=== PATIENT | male | born 1975 | race Two or more races ===

== ENCOUNTER 2018-06-29 17:40 | Emergency (ER) | payer OTHER ==
[~2018-06-29] VITALS: Ht 170.2 cm; Wt 68.0 kg
[2018-06-29] MEDS ORDERED: IBUPROFEN200 M1 (18:06)
== END 2018-06-29 21:01 | disposition home or self-care (01) ==
LOC: ER 17:40
DX: M48.061 Spinal stenosis, lumbar region without neurogenic claudication (principal); M54.5 Low back pain

== ENCOUNTER 2018-06-30 11:02 | Outpatient (CLI) | payer OTHER ==
[~2018-06-30 11:02] MED LIST: IBUPROFEN200 M1
== END 2018-06-30 11:06 | disposition home or self-care (01) ==
LOC: MRI 11:02
DX: M48.07 Spinal stenosis, lumbosacral region (principal)
CPT/HCPCS: 72148

== ENCOUNTER 2019-10-03 09:24 | Emergency (ER) | payer OTHER ==
[~2019-10-03] VITALS: Ht 162.6 cm; Wt 72.6 kg
== END 2019-10-03 11:41 | disposition home or self-care (01) ==
LOC: ER 09:24
DX: M54.5 Low back pain (principal)